=== PATIENT | male | born 1955 | race Caucasian/White ===

== ENCOUNTER → 2022-10-18 | Outpatient (CLI) | payer MEDICARE ==
[2022-10-18 13:13] LABS: Basophils # (auto) 0.1 10 ^3/uL (0-0.2); Basophils % (auto) 0.6 % (0.0-2.0); Eosinophils # (auto) 0.1 10 ^3/uL (0-0.8); Eosinophils % (auto) 1.4 % (0.0-7.0); Hematocrit 41.6 % (41.0-53.0); Hemoglobin 14.1 g/dL (13.5-17.5); Lymphocytes # (auto) 2.1 10 ^3/uL (0.4-5.4); Lymphocytes % (auto) 24.1 % (10.0-50.0); Mean Corpuscular Hemoglobin 32.9 pg (28.0-32.0); Mean Corpuscular Hgb Conc. 33.9 g/dL (32.0-36.0); Mean Corpuscular Volume 97.1 fL (80.0-100.0); Monocytes # (auto) 0.7 10 ^3/uL (0-1.3); Monocytes % (auto) 8.1 % (0.0-12.0); Neutrophils # (auto) 5.7 10 ^3/uL (1.6-8.6); Neutrophils % (auto) 65.8 % (37.0-80.0); Red Blood Cells 4.29 10^6/uL (4.5-5.90); Red Cell Distribution Width 13.1 % (11.8-14.3); White Blood Cell 8.7 10^3/uL (4.4-10.8)
[2022-10-18 13:41] LABS: Albumin 3.4 g/dL (3.4-5.0); Calcium 8.7 mg/dL (8.5-10.1); Potassium 4.1 mmol/L (3.5-5.1)
[2022-10-18 13:46] LABS: BUN/Creatinine Ratio 26.4 (10.0-20.0); Bilirubin, Total 0.8 mg/dL (0.2-1.0)
== END | disposition home or self-care (01) ==
LOC: LAB 12:44
PROVIDERS: ATTEND Internal Medicine
DX: I20.9 Angina pectoris, unspecified (principal); E78.00 Pure hypercholesterolemia, unspecified; R94.5 Abnormal results of liver function studies
CPT/HCPCS: 36415; 80053; 80061; 85025

== ENCOUNTER → 2024-01-16 | Outpatient (CLI) | payer OTHER ==
[2024-01-16 10:29] LABS: Basophils # (auto) 0.1 10 ^3/uL (0-0.2); Basophils % (auto) 0.7 % (0.0-2.0); Eosinophils # (auto) 0.1 10 ^3/uL (0-0.8); Eosinophils % (auto) 1.4 % (0.0-7.0); Hematocrit 42.9 % (41.0-53.0); Hemoglobin 14.7 g/dL (13.5-17.5); Lymphocytes # (auto) 1.6 10 ^3/uL (0.4-5.4); Mean Corpuscular Hgb Conc. 34.2 g/dL (32.0-36.0); Mean Corpuscular Volume 99.5 fL (80.0-100.0); Monocytes # (auto) 0.6 10 ^3/uL (0-1.3); Monocytes % (auto) 7.9 % (0.0-12.0); Neutrophils # (auto) 5.5 10 ^3/uL (1.6-8.6); Red Blood Cells 4.31 10^6/uL (4.5-5.90); Red Cell Distribution Width 13.2 % (11.8-14.3); White Blood Cell 7.9 10^3/uL (4.4-10.8)
[2024-01-16 10:54] LABS: Urine Bacteria MOD /hpf (None Seen); Urine Blood TRACE /uL (Negative); Urine Clarity Ex.Turbid (Clear); Urine Color Light-Orange (Yellow); Urine Mucus FEW (None Seen); Urine Protein, UAD 1+ (Negative); Urine Specific Gravity 1.037 (1.001-1.035); Urine Urobilinogen 2 mg/dL (Negative); Urine WBC 17 /hpf (0 - 3); Urine WBC Clumps PRESENT /hpf (None Seen); Urine pH 5.5 (5.0-9.0)
[2024-01-16 10:57] LABS: Alanine Aminotransferase 21 U/L (7-40); Alkaline Phosphatase 54 U/L (46-116); Anion Gap 4 (5-15); BUN/Creatinine Ratio 18.9 (10.0-20.0); Blood Urea Nitrogen 17 mg/dL (9-23); Calcium 9.4 mg/dL (8.5-10.1); Carbon Dioxide 26 mmol/L (20-30); Chloride 110 mmol/L (98-107); Glucose 101 mg/dL (74-106); LDL Cholesterol 81 mg/dL (< 100); Potassium 4.1 mmol/L (3.5-5.1); Sodium 140 mmol/L (136-145); Triglycerides 60 mg/dL (< 150)
[2024-01-16 10:58] LABS: Aspartate Aminotransferase 16 U/L (13-40); Cholesterol 156 mg/dL (< 200); HDL Cholesterol 57 mg/dL (40-59)
[2024-01-16 10:59] LABS: Total Protein 6.9 g/dL (5.7-8.2)
== END | disposition home or self-care (01) ==
LOC: LAB 10:04
PROVIDERS: ATTEND Internal Medicine
DX: I10 Essential (primary) hypertension (principal)
CPT/HCPCS: 36415; 80053; 80061; 81001; 84153; 85025; 87086

== ENCOUNTER → 2024-06-05 | Outpatient (CLI) | payer OTHER ==
[2024-06-05 09:27] LABS: Basophils # (auto) 0.1 10 ^3/uL (0-0.2); Basophils % (auto) 0.7 % (0.0-2.0); Eosinophils # (auto) 0.1 10 ^3/uL (0-0.8); Hemoglobin 15.2 g/dL (13.5-17.5); Lymphocytes # (auto) 1.5 10 ^3/uL (0.4-5.4); Mean Corpuscular Hemoglobin 34.7 pg (28.0-32.0); Mean Corpuscular Hgb Conc. 34.6 g/dL (32.0-36.0); Mean Corpuscular Volume 100.4 fL (80.0-100.0); Monocytes # (auto) 0.7 10 ^3/uL (0-1.3); Monocytes % (auto) 9.4 % (0.0-12.0); Neutrophils % (auto) 67.9 % (37.0-80.0); Nucleated Red Blood Cells % 0.1 %; Platelet Count (auto) 249 10^3/uL (140-450); Red Blood Cells 4.38 10^6/uL (4.5-5.90); White Blood Cell 7.4 10^3/uL (4.4-10.8)
[2024-06-05 11:08] LABS: Alanine Aminotransferase 40 U/L (7-40); Alkaline Phosphatase 62 U/L (46-116); Anion Gap 5 (5-15); BUN/Creatinine Ratio 15.8 (10.0-20.0); Blood Urea Nitrogen 15 mg/dL (9-23); Calcium 9.7 mg/dL (8.7-10.4); Carbon Dioxide 27 mmol/L (20-31); Chloride 106 mmol/L (98-107); Glucose 97 mg/dL (74-106); LDL Cholesterol 52 mg/dL (< 100); Potassium 4.7 mmol/L (3.5-5.1); Sodium 138 mmol/L (136-145); Triglycerides 70 mg/dL (< 150)
[2024-06-05 11:09] LABS: Albumin 4.2 g/dL (3.2-4.8); Aspartate Aminotransferase 24 U/L (13-40); Cholesterol 135 mg/dL (< 200); HDL Cholesterol 64 mg/dL (40-59)
== END | disposition home or self-care (01) ==
LOC: LAB 08:53
PROVIDERS: ATTEND Internal Medicine
DX: I10 Essential (primary) hypertension
CPT/HCPCS: 36415; 80053; 80061; 85025

== ENCOUNTER → 2024-06-21 | Outpatient (CLI) | payer OTHER | END | disposition home or self-care (01) | LOC: LAB 09:29 | PROVIDERS: ATTEND Dermatology | DX: D04.5 Carcinoma in situ of skin of trunk (principal); L57.0 Actinic keratosis; D48.5 Neoplasm of uncertain behavior of skin ==